=== PATIENT | male | born 1960 | race Caucasian/White ===

== ENCOUNTER 2019-10-26 10:21 | Outpatient (CLI) | payer OTHER, SELFPAY ==
--- NOTE | 2019-10-26 10:25 | ECG_ITS ---
Measurements Intervals [place] Rate: 74 P: 39 GA: 159 QRS: -6 QRSD: 97 T: 17 QT: 344 QTc: 384 Interpretive Statements SINUS RHYTHM WITH SINUS ARRHYTHMIA EARLY PRECORDIAL R/S TRANSITION BORDERLINE ECG Electronically Signed On 10-26-2019 10:56:41 CORE MACHINE OPERATOR by Everette Wu D.O.
== END 2019-10-26 10:22 | disposition home or self-care (01) ==
LOC: ANHSURGERY 10:25
PROVIDERS: PCP Family Medicine; Visit Provider Otolaryngology
DX: E78.00 Pure hypercholesterolemia, unspecified (principal)
CPT/HCPCS: 93005

== ENCOUNTER 2019-11-03 00:31 | Day surgery (SDC) | payer OTHER, SELFPAY ==
[2019-10-22 14:37] VITALS: BMI 28.4
--- NOTE | 2019-11-02 12:06 | HP_ITS ---
DATE OF SERVICE: HISTORY: A 59-year-old gentleman with a swollen gland. He has a swollen gland on the left side of his neck. It has been going on for months. He does not have any pain. 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 PHYSICAL EXAMINATION: CHEST: Clear. HEART: Without murmurs. ABDOMEN: Soft. EXTREMITIES: Negative. REVIEW OF SYSTEMS: Unremarkable. 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 PLAN: Parotidectomy, excision of the parotid mass. He has been explained the risks regarding facial weakness. D I [place]: [facility]
[2019-11-03] VITALS (7 sets, daily range): BP systolic 101–123; BP diastolic 64–87; PULSE 60–70; RESP 12–18; TEMP 36.2–36.4; O2SAT 95–99
--- NOTE | 2019-11-03 05:57 | WPDHPUPDATE1 ---
History and Physical Update Update Date/Time: 11/03/19 05:57 History and Physical has been reviewed, including an updated exam of the patient. There are NO changes in the patient's condition. Risks, benefits, and alternatives have been discussed and questions answered. Patient agrees to proceed with procedure.
--- NOTE | 2019-11-03 11:14 | WPDANESEPPF ---
Anes - Initial Pre Proc Eval Procedure: Operation Date: 11/03/19 12:45 Proposed Procedures p Left Parotidectomy - Russ Montana MD Date/Time: 11/03/19 11:14 Surgeon: Russ Montana MD Pre Op Diagnosis: sialodenitis Patient Data Age: 59 Gender: M Height: 1.78 m Weight: 89.6 kg Allergies Allergy/AdvReac Type Severity Reaction Status Date / Time No Known Allergies Allergy Unknown NONE Unverified 10/22/19 14:37 Home Medications Medication Instructions Recorded Confirmed Type aspirin 81 mg PO DAILY 10/22/19 10/22/19 History atorvastatin 20 mg PO DAILY 10/22/19 10/22/19 History cyanocobalamin (vitamin B-12) 1,000 mcg PO DAILY 10/22/19 10/22/19 History [Vitamin B-12] donepezil 5 mg PO DAILY 10/22/19 10/22/19 History ECG: Date of Service: 10/26/19 Procedure(s): CA 12 lead EKG Accession Number(s): [id number] cc: ~ Measurements Intervals [place] Rate: 74 P: 39 [place]: 159 QRS: -6 QRSD: 97 T: 17 QT: 344 QTc: 384 Interpretive Statements SINUS RHYTHM WITH SINUS ARRHYTHMIA EARLY PRECORDIAL R/S TRANSITION BORDERLINE ECG Electronically Signed On 10-26-2019 10:56:41 SLITTER SCORER CUT OFF OPERATOR by Everette Wu D.O. Dictated By: Everette Wu DO 10/26/19 1050 Patient hx anesthesia problems: none Family hx anesthesia problems: none [facility] Past Medical History Medical History (Updated 11/03/19 @ 11:15 by Rene White MD) CVA (cerebral vascular accident) Dementia Hypercholesterolemia Overweight (BMI 25.0-29.9) Anes - Eval Final PreProcedure Day of Procedure 11/03/19 11:14 Patient weight: overweight Heart: regular rate and rhythm Lungs: clear to auscultation and normal air movement Airway: Mallampati scale class II Neurological: alert and oriented Last oral intake: >/= 8 hours ASA classification: III Emergent: no Anesthetic plan: proceed Anesthesia type and monitoring: general ETT Informed Consent: The patient's anesthetic plan and its attendant risks and benefits were discussed with the patient/family/POA. Questions were solicited and answers provided to the satisfaction of the patient/family/POA.
[2019-11-03] MEDS: LIDO 1%/EPINEPHRINE 1:100,000 20 ML VIAL INFILTRATE (12:20)
--- NOTE | 2019-11-03 12:53 | PM.PROC ---
Procedure Note - Detailed Date of procedure: 11/03/19 Pre-op diagnosis: sialodenitis Post-op diagnosis: same Procedure performed: Patient was prepped and draped for vaginal anesthesia and incision was made elliptically around the mass in front of the left ear in the parotid region. Dissection by sharp dissection was carried down care being taken to preserve any branches of the facial nerve the mass was identified and removed with the LigaSure sent for pathologic examination hemostasis was obtained with bipolar cautery then closed in layers with chromic and Monocryl Anesthesia: GLMA Surgeon: Russ Montana MD Estimated blood loss (mL): 25 Drains: No Packing: No Pathology: yes Complications: No immediate complications Condition: stable Disposition: PACU
[2019-11-03] MEDS: LACTATED RINGERS 1,000 ML 30 ML IV CONT ×2 (13:05)
--- NOTE | 2019-11-16 07:03 | PM.PROC ---
Procedure Note - Detailed Date of procedure: 11/16/19 Pre-op diagnosis: sialodenitis Surgeon: Russ Montana MD
--- NOTE | 2019-11-16 07:09 | P.OP_ITS ---
Procedure Note - Detailed Date of procedure: 11/16/19 Pre-op diagnosis: sialodenitis Surgeon: Russ Montana MD [facility]
--- NOTE | 2019-11-16 07:09 | PM.PROC ---
Procedure Note - Detailed Date of procedure: 11/16/19 Pre-op diagnosis: sialodenitis Surgeon: Russ Montana MD [facility]
== END 2019-11-03 14:44 | disposition home or self-care (01) ==
PROVIDERS: PCP Family Medicine; Visit Provider Otolaryngology
PROC: (CPT 42410; principal; 2019-11-03 12:45)
DX: D11.0 Benign neoplasm of parotid gland (principal); E78.00 Pure hypercholesterolemia, unspecified; F03.90 Unspecified dementia, unspecified severity, without behavioral disturbance, psychotic disturbance, mood disturbance, and anxiety; Z86.73 Personal history of transient ischemic attack (TIA), and cerebral infarction without residual deficits; Z79.82 Long term (current) use of aspirin
CPT/HCPCS: 42415; 88305; 88307; A9270; J0131; J0330; J0690; J1100; J2250; J2405; J2704; J3010; J7120

== ENCOUNTER 2021-02-08 09:57 | Outpatient (CLI) | payer MEDICARE, MEDICAID, SELFPAY | END 2021-02-08 09:58 | disposition home or self-care (01) | PROVIDERS: PCP Family Medicine | DX: H91.90 Unspecified hearing loss, unspecified ear (principal) | CPT/HCPCS: 99199 ==

== ENCOUNTER 2021-02-13 09:55 | Outpatient (CLI) | payer MEDICARE, MEDICAID, SELFPAY | END 2021-02-13 09:56 | disposition home or self-care (01) | LOC: ANHAUDASC 09:57 | PROVIDERS: PCP Family Medicine; Visit Provider Psychiatry & Neurology Neurology | DX: H91.90 Unspecified hearing loss, unspecified ear (principal) | CPT/HCPCS: 92557; 92567; V5160; V5261 ==